=== PATIENT | male | born 1955 | race African-American/Black ===

== ENCOUNTER → 2021-01-15 04:00 | Outpatient (REF) | payer MEDICARE, MEDICAID, SELFPAY ==
[2021-01-15 07:48] LABS: Hematocrit 36.3 % (40-54); Hemoglobin 11.7 g/dL (13.0-16.5); Mean Corp Hgb Conc 32.2 g/dL (32-36); Mean Corpuscular Hgb 31.6 pg (27.0-32.0); Mean Corpuscular Volume 98.1 fL (80-94); Mean Platelet Vol. 13.6 fl (6.2-12.0); Platelet Count 172 K/mm3 (150-450); RBC Distribution Width CV 12.4 % (11.6-14.6); RBC Distribution Width SD 44.9 fl (35.1-43.9); White Blood Count 8.5 K/mm3 (4.4-11.0)
[2021-01-15 08:28] LABS: ALB/GLOB Ratio 0.5 RATIO (0.9-2.4); AST(SGOT) 20 U/L (15-37); Alanine Aminotransfer ALT/SGPT 27 U/L (16-61); Alkaline Phosphatase 108 U/L (45-117); Anion Gap 7 (5-15); BUN 23 mg/dL (7-18); BUN/Creat Ratio 28.7 RATIO (10-20); Calcium,Total 8.6 mg/dL (8.5-10.1); Chloride 105 mmol/L (98-107); Cholesterol 122 mg/dL (200); EST Glomerular Filtration Rate 102 mL/min (>60); Est Glom Filt Rate - Afr Amer 124 mL/min (>60); Globulin 4.2 g/dL (2.2-4.2); Glucose 80 mg/dL (74-106); High Density Lipoprotein 44 mg/dL; Magnesium 1.8 mg/dL (1.6-2.6); Potassium 3.2 mmol/L (3.5-5.1); Protein, Total 6.2 g/dL (6.4-8.2); Sodium Level 140 mmol/L (136-145); Triglycerides 87 mg/dL; Very Low Density Lipoprotein 17 mg/dL (5-40)
[2021-01-15 08:38] LABS: Hemoglobin A1c 4.7 % (3.8-5.6)
[2021-01-15 15:54] LABS: Vitamin D,25 Hydroxy 32.5 ng/mL
== END ==
LOC: OLS.ACW200 04:00
PROVIDERS: Visit Provider Family Medicine
DX: G93.40 Encephalopathy, unspecified (principal); A41.9 Sepsis, unspecified organism; R27.9 Unspecified lack of coordination; R13.12 Dysphagia, oropharyngeal phase; I67.82 Cerebral ischemia; I63.81 Other cerebral infarction due to occlusion or stenosis of small artery; E11.9 Type 2 diabetes mellitus without complications; E55.9 Vitamin D deficiency, unspecified
CPT/HCPCS: 36415; 80053; 80061; 82306; 83036; 83735; 84443; 85027

== ENCOUNTER → 2021-05-29 05:00 | Outpatient (REF) | payer MEDICARE, MEDICAID, SELFPAY ==
[2021-05-29 08:59] LABS: Hematocrit 39.8 % (40-54); Mean Corp Hgb Conc 32.7 g/dL (32-36); Mean Corpuscular Hgb 31.1 pg (27.0-32.0); Mean Corpuscular Volume 95.2 fL (80-94); Mean Platelet Vol. 13.8 fl (6.2-12.0); Platelet Count 196 K/mm3 (150-450); RBC Distribution Width CV 13.2 % (11.6-14.6); Red Blood Count 4.18 M/mm3 (4.6-6.2); White Blood Count 10.1 K/mm3 (4.4-11.0)
[2021-05-29 09:17] LABS: Hemoglobin A1c 6.3 % (3.8-5.6)
[2021-05-29 09:29] LABS: AST(SGOT) 37 U/L (15-37); Alanine Aminotransfer ALT/SGPT 21 U/L (16-61); Albumin, Serum 2.3 g/dL (3.2-5.0); Alkaline Phosphatase 90 U/L (45-117); Anion Gap 6 (5-15); BUN 36 mg/dL (7-18); BUN/Creat Ratio 30.5 RATIO (10-20); Bilirubin, Direct 0.12 mg/dL (0.00-0.30); Calcium,Total 9.5 mg/dL (8.5-10.1); Chloride 102 mmol/L (98-107); Creatinine, Serum 1.18 mg/dL (0.70-1.30); EST Glomerular Filtration Rate 65 mL/min (>60); Est Glom Filt Rate - Afr Amer 79 mL/min (>60); Globulin 5.1 g/dL (2.2-4.2); Glucose 167 mg/dL (74-106); Potassium 3.9 mmol/L (3.5-5.1); Protein, Total 7.4 g/dL (6.4-8.2); Sodium Level 138 mmol/L (136-145)
== END ==
LOC: OLS.ACW100 05:00
PROVIDERS: Visit Provider Family Medicine
DX: G93.40 Encephalopathy, unspecified (principal); A41.9 Sepsis, unspecified organism; R27.9 Unspecified lack of coordination; R13.12 Dysphagia, oropharyngeal phase; I67.82 Cerebral ischemia; I63.81 Other cerebral infarction due to occlusion or stenosis of small artery; E11.9 Type 2 diabetes mellitus without complications
CPT/HCPCS: 36415; 80048; 80076; 83036; 85027

== ENCOUNTER → 2021-06-09 20:30 | Outpatient (REF) | payer MEDICARE, MEDICAID, SELFPAY ==
[2021-06-10 15:32] LABS: Color, Urine Yellow (Yellow); Glucose, Dipstick Normal (Normal); Ketone-Dipstick Negative (Negative); Leukocyte Esterase-Dipstick 500 /ul (Negative); Nitrite-Dipstick Negative (Negative); Occult Blood-Urine 25 /ul (Negative); Protein-Dipstick 100 mg/dl (Negative); Urine Bilirubin Dipstick Negative (Negative); Urine Clarity Cloudy (Clear); Urine Urobilinogen 1 mg/dl (Normal)
== END ==
LOC: OLS.ACW100 20:30
PROVIDERS: Visit Provider Family Medicine
DX: R30.0 Dysuria (principal); G93.40 Encephalopathy, unspecified; A41.9 Sepsis, unspecified organism; R27.9 Unspecified lack of coordination; R13.12 Dysphagia, oropharyngeal phase; I67.82 Cerebral ischemia; I63.81 Other cerebral infarction due to occlusion or stenosis of small artery
CPT/HCPCS: 81002; 87077; 87086; 87088; 87186